=== PATIENT | male | born 1965 | race Caucasian/White ===

== ENCOUNTER 2021-04-16 14:45 | Emergency (ER) | payer OTHER ==
[2021-04-16 14:56] VITALS: BP 138/90; PULSE 72; TEMP 98; BMI 34.2
== END 2021-04-16 15:55 | disposition home or self-care (01) ==
LOC: FER 14:45
DX: S86.112A Strain of other muscle(s) and tendon(s) of posterior muscle group at lower leg level, left leg, initial encounter (principal); X50.0XXA Overexertion from strenuous movement or load, initial encounter; Y93.01 Activity, walking, marching and hiking
CPT/HCPCS: 93971-TC; 99284-25

== ENCOUNTER 2021-11-29 16:26 | Emergency (ER) | payer OTHER ==
[2021-11-29 16:46] VITALS: TEMP 98.2; BMI 33.1
[2021-11-29 18:22] LABS: EPI CELLS 6 /uL (0-25.1); HYALINE CASTS 1 /uL (0-3.1); PH,URINE 6.5 (5.0-8.0); URINE APPEARANCE CLEAR; URINE BACTERIA 8 /uL (0-1359); URINE BILIRUBIN NEGATIVE (NEGATIVE); URINE COLOR YELLOW; URINE GLUCOSE (UA) NEGATIVE (NEGATIVE); URINE KETONE NEGATIVE (NEGATIVE); URINE LEUK ESTERASE NEGATIVE (NEGATIVE); URINE NITRITE NEGATIVE (NEGATIVE); URINE PROTEIN 1+ (NEGATIVE); URINE RBC 2 /uL (0-23.9); URINE UROBILINOGEN 0.2 mg/dL (0.2-1.0); URINE WBC 6 /uL (0-25.8)
[2021-11-29] MEDS ORDERED: cefTAZidime PENTAHYDRATE 1 GM/50ML PRE-DOCKED (RESTRICTED TO ID) IVPB ONE (19:44)
[2021-11-29] MEDS ORDERED: SODIUM CHLORIDE 0.9% 500 ML INFUS.BAG IV ONE (19:44)
[2021-11-29] MEDS ORDERED: TAMSULOSIN HCL 0.4 MG CAP PO ONE (19:44)
[2021-11-29] MEDS ORDERED: CIPROFLOXACIN 500 MG TABLET (RESTRICTED TO ID) PO ONE (20:25)
[2021-11-29] MEDS ORDERED: TAMSULOSIN HCL 0.4 MG CAP ONE (20:44)
[2021-11-29 23:02] VITALS: BP 140/83; PULSE 73
== END 2021-11-29 22:59 | disposition home or self-care (01) ==
LOC: JER 16:26 → JERFT 16:26
DX: N50.812 Left testicular pain (principal)
CPT/HCPCS: 36415; 76870-TC; 81003; 87086; 87491; 87591; 99284-25